=== PATIENT | female | born 1985 | race Caucasian/White ===

== ENCOUNTER 2017-10-22 15:40 | Emergency (ER) | payer BC ==
[~2017-10-22] VITALS: Ht 165.1 cm; Wt 120.8 kg
[~2017-10-22 15:40] MED LIST: CIPRO500 MG PO; ENDOCET 5-3251 EACH PO; FLAGYL500 MG PO; IBUPROFEN800 MG PO; PRENATAL COMPL1 EACH PO; ULTRAM50 MG PO; VICODIN 5-3001 EACH PO; ZOFRAN4 MG PO
[2017-10-22] MEDS ORDERED: VENTOLIN HFA18 GM IH (17:31)
[2017-10-22] MEDS ORDERED: MEDROL DOSEPAK4 MG PO (17:33)
[2017-10-22 18:06] LABS: HEMOGLOBIN 14.9 G/DL (11.9-15.5); MCH 28.4 PG (29.0-34.0); MCHC 33.9 G/DL (30.0-36.0); MCV 83.8 FL (83-99); PLATELET COUNT 245 K/uL (156-360); RBC DIS.WIDTH-CV 12.1 % (11.8-14.6); RBC DIS.WIDTH-SD 36.8 % (39-53); RED BLOOD COUNT 5.25 M/uL (3.80-5.20); WHITE BLOOD COUNT 5.9 K/uL (4.1-10.2)
[2017-10-22 18:14] LABS: CHLORIDE 104 mEq/L (99-109); POTASSIUM 4.3 mEq/L (3.7-5.4); SODIUM 139 mEq/L (136-147)
[2017-10-22 18:16] LABS: D-DIMER ELISA < 150.00 ng/mLDDU (<230); GLUCOSE 151 mg/dL (70-99)
[2017-10-22 18:19] LABS: CREATININE 0.8 mg/dL (0.6-1.3); GFR ESTIMATE (CALCULATED) > 59 mL/min/
[2017-10-22 18:20] LABS: UREA NITROGEN (BUN) 13 mg/dL (9-23)
[2017-10-22 18:31] LABS: QUANTITATIVE HCG < 4.0 MIU/ML
[2017-10-22 18:42] LABS: TROP-I INTERPRETATION NEGATIVE; TROPONIN-I 0.02 ng/mL (0.0-0.30)
[2017-10-22 19:43] VITALS: BP 144/75
== END 2017-10-22 19:43 | disposition home or self-care (01) ==
LOC: EME 15:40
PROVIDERS: Physician Assistant
DX: R06.00 Dyspnea, unspecified (principal); J11.1 Influenza due to unidentified influenza virus with other respiratory manifestations
CPT/HCPCS: 71046; 80048; 84484; 84702; 85027; 85379; 93005; 94640; 99281; 99285; J7030